=== PATIENT | male | born 1940 ===

== ENCOUNTER 2017-06-17 07:06 | Day surgery (SDC) | payer OTHER ==
[~2017-06-17 07:06] MED LIST: CLORAZEPATE DI7.5 MG PO; COZAAR25 MG PO; FINASTERIDE5 MG PO; TAMS0.4C PO; [UNRECOGNIZED DRUG - OTHER] PO
== END 2017-06-17 19:20 | disposition home or self-care (01) ==
LOC: CIR.AMB 07:06
DX: K40.90 Unilateral inguinal hernia, without obstruction or gangrene, not specified as recurrent (principal); K42.9 Umbilical hernia without obstruction or gangrene; K43.2 Incisional hernia without obstruction or gangrene

== ENCOUNTER 2017-11-11 09:08 | Day surgery (SDC) | payer OTHER | END 2017-11-11 19:10 | disposition home or self-care (01) | LOC: CIR.AMB 09:08 | DX: K40.90 Unilateral inguinal hernia, without obstruction or gangrene, not specified as recurrent (principal); K43.2 Incisional hernia without obstruction or gangrene ==

== ENCOUNTER → 2018-11-30 | Outpatient (CLI) | payer OTHER | END | disposition home or self-care (01) | LOC: MAMO-SONO 07:15 → SONOGRAMA 07:18 | DX: R31.29 Other microscopic hematuria (principal) ==